=== PATIENT | female | born 1975 | race Caucasian/White ===

== ENCOUNTER → 2023-11-17 14:53 | Outpatient (REF) | payer OTHER, SELFPAY | LOC: WDC 14:53 | PROVIDERS: ATTENDING PHYSICIAN Family Medicine | DX: R92.8 Other abnormal and inconclusive findings on diagnostic imaging of breast (principal) | CPT/HCPCS: 76642 ==

== ENCOUNTER → 2024-05-13 13:48 | Outpatient (REF) | payer OTHER, SELFPAY | LOC: WDC 13:48 | PROVIDERS: ATTENDING PHYSICIAN Nurse Practitioner Women's Health; FAMILY PHYSICIAN Family Medicine | DX: Z12.31 Encounter for screening mammogram for malignant neoplasm of breast (principal); R92.8 Other abnormal and inconclusive findings on diagnostic imaging of breast | CPT/HCPCS: 76642; 77063; 77067 ==

== ENCOUNTER → 2024-12-27 10:15 | Outpatient (REF) | payer OTHER, SELFPAY | LOC: HWRAD 10:15 | PROVIDERS: ATTENDING PHYSICIAN Obstetrics & Gynecology; FAMILY PHYSICIAN Family Medicine | DX: T83.32XA Displacement of intrauterine contraceptive device, initial encounter (principal) | CPT/HCPCS: 76830; 76856 ==

== ENCOUNTER → 2025-01-07 17:12 | Outpatient (REF) | payer OTHER, SELFPAY | LOC: MRI 17:12 | PROVIDERS: ATTENDING PHYSICIAN Obstetrics & Gynecology; FAMILY PHYSICIAN Family Medicine | DX: N85.8 Other specified noninflammatory disorders of uterus (principal) | CPT/HCPCS: 72197; A9575 ==

== ENCOUNTER → 2025-01-26 17:17 | Outpatient (REF) | payer OTHER, SELFPAY | LOC: RAD 17:17 | PROVIDERS: ATTENDING PHYSICIAN Obstetrics & Gynecology Gynecologic Oncology; FAMILY PHYSICIAN Family Medicine | DX: N93.9 Abnormal uterine and vaginal bleeding, unspecified (principal); R19.09 Other intra-abdominal and pelvic swelling, mass and lump; D25.9 Leiomyoma of uterus, unspecified; C55 Malignant neoplasm of uterus, part unspecified | CPT/HCPCS: 71260; 74177; Q9967 ==

== ENCOUNTER 2025-02-01 06:08 | Day surgery (SDC) | payer OTHER, SELFPAY ==
[2025-01-19 13:47] VITALS: BMI 33.9
--- NOTE | 2025-01-31 15:01 | W.CON.GYNONC ---
Chief Complaint
-
Uterine mass
History of Present Illness
This is a 49�year�old white female referred to me by for evaluation. Patient has had an IUD since 2016, in 2019
she had irregular bleeding biopsy was negative, she recalls this was a very painful experience. Her menstrual cycles used to be 3 to
4 days and now lasting about 8 days counting the days of spotting before and after. Over the last 6 to 12 months she feels some
swelling in the pelvic area. She also admits to having an IUD in place and will check her strings, she has been having a hard time
identifying the string actually.
She transferred her care to Dr. Pinedo and was seen last week, Dr. Pinedo, think that she might have seen the strings
within the endocervical canal. For further evaluation of her bleeding she did not want to have a biopsy in the office, instead she had
an ultrasound and [facility] MRI.
Ultrasound of pelvis dated December 27, 2024 shows mass associated with the fundus of the uterus that measures 9.9 cm, there is no
shadowing, this is not typical for complex cyst or endometrioma, likely a large transmural vascular fibroid. Endometrium measures
4.4 mm, right ovary is 2.3 cm, right ovary complex cyst measuring 1.47, left ovary 2.5 cm.
MRI of the pelvis was done January 07, 2025, mass which is round circumscribed, it does not extend beyond the uterus, the mass
obscures visualization of the endometrium. Uterus is 14 cm, body of the uterus is nearly completely replaced by 8.9 x 10 x 10 cm.
This probably represents a fibroid of leiomyosarcoma cannot distinguish reliably from fibroid by MRI. Comments are made that the
IUD has migrated. Endocervical canal is not in proper place
PAP on 01/26/24 cytology negative, HPV negative
Past medical history anxiety
Past surgical history none
Allergies NKDA
Medications none
Social history she works as a plant general manager, she is single, she denies tobacco or drug use, she does admit to use of medical marijuana
to help her sleep. She drinks alcohol socially
Family history is noncontributory
Social�History Former�Smoker. Social�use�of�alcohol. Occupational�Status:�Current:�plant general manager. Marital�Status:�Patient�is�single
Gynecological�History Age�at�Menarche�14�years.�Patient�reports�1�pregnancies.
Family�Medical�History Mother:�diabetes father:�kidney�disease
Patient�Reported�Level�of�Pain Pain:�2���Discomforting�pain. Pain:�2���Discomforting�pain. Treatment�Recommendations�for�Pain Continue�current�pain�regimen.
Medical History
Allergies
Allergies reflect when allergies were last updated in [employer].
No Known Allergies Allergy (Verified 01/18/25 15:03)
Physical Exam
Physical Exam
Physical Exam
Pelvic Examination:
External normal labia, urethra, anus.
Vagina: Normal mucosa.
Cervix: normal appearance, no discharge.no lesions, pap done
Uterus: 16 weeks size, mobile
Adnexa: No pelvic mass.
Abby Ricketts, 1975 Page 2 of 4
RVE: no masses or nodularity
General: Well developed, well nourished patient. In no acute distress.
Neck: No thyromegaly. No cervical lymphadenopathy.
Lungs: Clear to auscultation. Good air movement bilaterally.
Cardiac: Regular rate. Regular rhythm. No murmurs appreciated.
Right Breast: No masses or dimpling. No nipple discharge.
Left Breast: No masses or dimpling. No nipple discharge.
Abdomen: Abdomen is soft. Non�tender to palpation. Non�distended.
Extremities: No edema.
Hematologic/Lymphatic: No palpable lymphadenopathy.
Musculoskeletal: Normal range of motion. Strength and Tone are normal.
Skin:Non�jaundiced. No petechia. No purpura.
Neurologic: Speech is fluent. Normal gait and station. Cranial nerves intact
Results
-
Diagnostic Imaging Report
SignedOrder #:[id number]
Exams: CT Chest/abd/pel W Iv Cont
PROCEDURE: CT chest, abdomen, and pelvis with IV contrast
CLINICAL INDICATION: Abnormal vaginal bleeding, malignant neoplasm of the uterus
TECHNIQUE: Contrast-enhanced CT of the chest, abdomen, and pelvis was performed following uneventful administration of 85 mL of intravenous contrast. Automated dose reduction technique was used.
COMPARISON: Pelvis MRI 01/07/2025
FINDINGS:
There is no pulmonary mass or consolidation. There is no pleural effusion.
There is no enlarged hilar or mediastinal adenopathy. There is no pericardial effusion. The heart is not enlarged. There is no thyroid mass.
The liver and spleen are unremarkable. There is no pancreatic mass. There are no gallstones. There is no adrenal mass. There is bilateral renal excretion with no evidence of a renal mass.
There is contrast in small and large bowel. Small bowel loops are not distended.
The uterus is markedly enlarged measuring approximately 12.5 x 11.6 x 15.2 cm. There is an IUD in the endometrial canal. In the fundus of the uterus there is an inhomogeneous mass seen on recent MRI. This measures approximately 10.8 x 9.0 x 8.6 cm.
In the left adnexa there is a simple cyst measuring 3 cm. This is not seen on the pelvic MRI. The right ovary has a complex cystic appearance measuring 3 cm. Recent MRI suggests an endometrioma. There is no free fluid in the abdomen or pelvis. There
is no bladder mass or calculus.
The visualized osseous structures are unremarkable
IMPRESSION:
There is no CT evidence of metastatic disease
The uterus is markedly enlarged and inhomogeneous with a fundal mass seen on MRI
There is a simple cyst in the left adnexa not seen on MRI
There is a complex cystic appearance to the right ovary, likely endometrioma as noted on MRI
Electronically signed by Memo Grullon MD, 01/27/2025 2:33 PM
[facility] Dose Report: Up-to-date CT equipment and radiation dose reduction techniques were employed. CTDIvol: 8.9 - 13.5 mGy. DLP: 872 mGy-cm.
Dictated By: Mitchel COTO,Memo Oliveira
Dictated Date & Time: 01/27/25 8826
Impression / Plan
-
I spoke with the patient extensively and reviewed the images from her recent formal and shared with her my findings from the
examination. The uterus is approximately 16 weeks in size, the MRI is significant for this large 10 cm uterine mass which is
hypervascular, abnormal uterine bleeding requires further investigation including dilation and curettage at which time IUD will be
removed. She is agreeable to this. She is not agreeable to try biopsy because of the pain associated with that. The previous
procedure in the office. Surgery will be scheduled next week.
In addition labs including coagulation studies TSH FSH and hCG CA125 will be done
I did express to her my concern that I cannot exclude the possibility of a uterine leiomyosarcoma, the only way to distinguish this
lesion is by performing a hysterectomy and having pathology negative diagnosis. In order to rule this out completely the patient
wanted to go total laparoscopic hysterectomy bilateral salpingo�oophorectomy which can be done robotically but because of her
normal thyroid status the patient probably requires a mini laparotomy for extraction of specimen. As part of her preoperative
evaluation a CT of chest abdomen and pelvis will be obtained.
I asked her to obtain a medical clearance from her primary care physician.
[2025-02-01] VITALS (9 sets, daily range): BP systolic 100–151; BP diastolic 57–97; BMI 33.9
[2025-02-01] MEDS: CELEBREX 200 MG PO (07:06)
[2025-02-01] MEDS: NEURONTIN 300 MG PO (07:06)
[2025-02-01] MEDS: HEPARIN 5000 UNITS SC (07:07)
[2025-02-01] MEDS: NORMOSOL-R/PLASMALYTE-A 1000 IV (07:07)
[2025-02-01] MEDS: TYLENOL 1000 MG PO (07:07)
--- NOTE | 2025-02-01 08:27 | OR.RPT ---
Operative Report
Operative Report
Date of procedure: February 01, 2025
Preoperative diagnosis: Uterine mass, abnormal uterine bleeding, desire to remove IUD
Postoperative diagnosis: Same pending pathology
Surgeon: Ja Bowen MD
Assist: James Riojas PA-C
Procedure: Exam under anesthesia, dilation and curettage with diagnostic hysteroscopy, removal of IUD
Anesthesia: General LMA intubation
Estimated blood loss: 50 cc
Complication: None
Indication for the surgery: This patient has recently been evaluated for abnormal uterine bleeding and was noted to have a large uterine mass that is vascular. Endometrial sampling could not be tolerated in the office and plan is for a definitive
hysterectomy. Decision was made to bring her to the operating room for dilation and curettage and sampling of the endometrium prior to hysterectomy.
Procedure in detail: This patient was brought to the operating room and placed in supine position. General anesthesia was induced and LMA intubation was completed. She was placed in lithotomy position using yellowfin stirrups and prepped on the
perineum upper thighs and vagina. The patient was draped. Timeout procedure was carried out. She received 2 g of Ancef for prophylaxis. The weighted speculum was placed in the posterior fornix anterior lip of the cervix was grasped with
single-tooth tenaculum, paracervical block was performed with 10 cc 1% lidocaine injected equally at 5 and 7:00 paracervical location. Cervix is grossly within normal limits. The uterus is approximately 16 cm in size, bilateral parametria are
within normal limits and the uterus is mobile but fundus extends just below umbilicus. Following this cervical canal was gradually dilated with Lowe dilators up to 8. I used a polyp forcep that was introduced in the uterine cavity and extracted
the IUD without any difficulty this was not sent to pathology. Hysteroscope was introduced in the cervical canal. Please note that the cervical canal measured about 15 cm. The endometrial cavity was filled with tissue, specific polyp was not
seen. Hysteroscope was removed, dilation was continued up to size 10 Lowe dilator. At this point sharp curettage of the endometrial cavity was performed and moderate amount of tissue some polypoid in nature was extracted after 3 times and sharp
cry was able to be palpated on all ortega of the endometrial cavity. This tissue was submitted to pathology we observed the patient and there was minimal to no evidence of bleeding. All instruments were removed. Patient was sent to recovery room
in awake stable and extubated condition. Counts of laps instruments and needle was correct x 2. I was present and scrubbed for entire procedure as dictated above
Specimen: EMC
Disposition: To PACU stable awake and extubated
[2025-02-01] MEDS: DILAUDID 0.25 MG IV (08:45)
== END 2025-02-01 10:15 | disposition home or self-care (01) ==
LOC: SDS 06:08
PROVIDERS: ATTENDING PHYSICIAN Obstetrics & Gynecology Gynecologic Oncology; FAMILY PHYSICIAN Family Medicine
DX: N83.8 Other noninflammatory disorders of ovary, fallopian tube and broad ligament (principal); N93.8 Other specified abnormal uterine and vaginal bleeding; R19.09 Other intra-abdominal and pelvic swelling, mass and lump; Z96.0 Presence of urogenital implants
CPT/HCPCS: 58558; 58301; 88305; 36415; 86850; 86900; 86901; 88341; 88342; 88360

== ENCOUNTER 2025-02-15 06:16 | Day surgery (SDC) | payer OTHER, SELFPAY ==
[2025-02-04 14:02] VITALS: BMI 32.7
--- NOTE | 2025-02-13 08:43 | W.CON.GYNONC ---
Chief Complaint
-
VAscular mass of uterus
History of Present Illness
This�is�a�49�year�old��white�female�referred�to�me�by�Dr.Fonslick�for�evaluation.�Patient�has�had�an�IUD�since�2015,�in�2018
she�had�irregular�bleeding�biopsy�was�negative,�she�recalls�this�was�a�very�painful�experience.�Her�menstrual�cycles�used�to�be�3�to
4�days�and�now�lasting�about�8�days�counting�the�days�of�spotting�before�and�after.�Over�the�last�6�to�12�months�she�feels�some
swelling�in�the�pelvic�area.�She�also�admits�to�having�an�IUD�in�place�and�will�check�her�strings,�she�has�been�having�a�hard�time identifying�the�string�actually.
She�transferred�her�care�to�[facility],�,�think�that�she�might�have�seen�the�strings
within�the�endocervical�canal.�For�further�evaluation�of�her�bleeding�she�did�not�want�to�have�a�biopsy�in�the�office,�instead�she�had an�ultrasound�and�[facility]�MRI.
Ultrasound�of�pelvis�dated�March�1�shows�mass�associated�with�the�fundus�of�the�uterus�that�measures�9.9�cm,�there�is�no
shadowing,�this�is�not�typical�for�complex�cyst�or�endometrioma,�likely�a�large�transmural�vascular�fibroid.�Endometrium�measures 4.4�mm,�right�ovary�is�2.3�cm,�right�ovary�complex�cyst�measuring�1.47,�left�ovary�2.5�cm.
MRI�of�the�pelvis�was�done�March�2,�mass�which�is�round�circumscribed,�it�does�not�extend�beyond�the�uterus,�the�mass
obscures�visualization�of�the�endometrium.�Uterus�is�14�cm,�body�of�the�uterus�is�nearly�completely�replaced�by�8.9�x�10�x�10�cm.
This�probably�represents�a�fibroid�of�leiomyosarcoma�cannot�distinguish�reliably�from�fibroid�by�MRI.�Comments�are�made�that�the IUD�has�migrated.�Endocervical�canal�is�not�in�proper�place PAP�on�01/26/24�cytology�negative,�HPV�negative
D&C was done on 02/01/2025, pathology shows:
FINAL DIAGNOSIS
A. Endometrium, curettage:
Cellular smooth muscle lesion with abundant vessels. See comment.
Scant benign endocervical epithelium with tubal metaplasia, a rare fragment of benign
squamous epithelium and scant benign endometrium in a background of abundant blood.
Comment: The smooth muscle lesion is positive for ER, KY, WT-1, SMA, desmin, and
caldesmon, and shows partial positivity for CD10, BCL-2 and gonsalez-keratin. The lesion is negative
for CD34 (highlights the vessels), STAT6 and HMB-45. Ki-67 shows an intermediate
proliferation index. No areas of necrosis or mitoses are identified. The findings are compatible
with a smooth muscle derived lesion with abundant vessels, however given the small sampling of
a �mass measuring 9.9 cm� noted on pelvic ultrasound, the differential includes a vascular
leiomyoma, STUMP or leiomyosarcoma, and less likely an endometrial stromal sarcoma.
Clinical and radiologic correlation recommended.
The findings of this case were conveyed to and received by Dr. Bowen via a secure messaging
system on 02/11/25 at 4:24 PM.
Dictated by: Michelle Garber MD
Past�medical�history�anxiety
Past�surgical�history�D&C, Removal of IUD
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
Family�history�is�noncontributory
Medical History
Allergies
Allergies reflect when allergies were last updated in [employer].
No Known Allergies Allergy (Verified 02/08/25 09:06)
Physical Exam
Physical Exam
Pelvic�Examination: External�normal�labia,�urethra,�anus.� Vagina:�Normal�mucosa.� Cervix:�normal�appearance,�no�discharge.no�lesions,�pap�done Uterus:�16�weeks�size,�mobile� Adnexa:�No�pelvic�mass.� RVE:�no�masses�or�nodularity
General:�Well�developed,�well�nourished�patient.�In�no�acute�distress. Neck:�No�thyromegaly.�No�cervical�lymphadenopathy. Lungs:�Clear�to�auscultation.�Good�air�movement�bilaterally. Cardiac:�Regular�rate.�Regular�rhythm.�No�murmurs�appreciated.
Right�Breast:�No�masses�or�dimpling.�No�nipple�discharge. Left�Breast:�No�masses�or�dimpling.�No�nipple�discharge. Abdomen:�Abdomen�is�soft.�Non�tender�to�palpation.�Non�distended. Extremities:�No�edema.
Hematologic/Lymphatic:�No�palpable�lymphadenopathy. Musculoskeletal:�Normal�range�of�motion.�Strength�and�Tone�are�normal. Skin:Non�jaundiced.�No�petechia.�No�purpura. Neurologic:�Speech�is�fluent.�Normal�gait�and�station.�Cranial�nerves�intact.
Results
-
[facility]
[address] [place] [address]
[phone]
Patient Name: ROSE HAILE
: 1975
Unit Number: [id number]
Age/Sex: 49/F
Patient
Location: RAD
Order Provider: Ja Bowen MD
Exam Service Date: 01/26/25

Diagnostic Imaging Report
SignedOrder #:[id number]
Exams: CT Chest/abd/pel W Iv Cont
PROCEDURE: CT chest, abdomen, and pelvis with IV contrast
CLINICAL INDICATION: Abnormal vaginal bleeding, malignant neoplasm of the uterus
TECHNIQUE: Contrast-enhanced CT of the chest, abdomen, and pelvis was performed following uneventful administration of 85 mL of intravenous contrast. Automated dose reduction technique was used.
COMPARISON: Pelvis MRI 01/07/2025
FINDINGS:
There is no pulmonary mass or consolidation. There is no pleural effusion.
There is no enlarged hilar or mediastinal adenopathy. There is no pericardial effusion. The heart is not enlarged. There is no thyroid mass.
The liver and spleen are unremarkable. There is no pancreatic mass. There are no gallstones. There is no adrenal mass. There is bilateral renal excretion with no evidence of a renal mass.
There is contrast in small and large bowel. Small bowel loops are not distended.
The uterus is markedly enlarged measuring approximately 12.5 x 11.6 x 15.2 cm. There is an IUD in the endometrial canal. In the fundus of the uterus there is an inhomogeneous mass seen on recent MRI. This measures approximately 10.8 x 9.0 x 8.6 cm.
In the left adnexa there is a simple cyst measuring 3 cm. This is not seen on the pelvic MRI. The right ovary has a complex cystic appearance measuring 3 cm. Recent MRI suggests an endometrioma. There is no free fluid in the abdomen or pelvis. There
is no bladder mass or calculus.
The visualized osseous structures are unremarkable
IMPRESSION:
There is no CT evidence of metastatic disease
The uterus is markedly enlarged and inhomogeneous with a fundal mass seen on MRI
There is a simple cyst in the left adnexa not seen on MRI
There is a complex cystic appearance to the right ovary, likely endometrioma as noted on MRI
Electronically signed by Memo Grullon MD, 01/27/2025 2:33 PM
[facility] Dose Report: Up-to-date CT equipment and radiation dose reduction techniques were employed. CTDIvol: 8.9 - 13.5 mGy. DLP: 872 mGy-cm.
Dictated By: Mitchel COTO,Memo Oliveira
Dictated Date & Time: 01/27/251414
Impression / Plan
-
I�spoke�with�the�patient�extensively�and�reviewed�the�images�from�her�recent�formal�and�shared�with�her�my�findings�from�the examination.�The�uterus�is�approximately�16�weeks�in�size,�the�MRI�is�significant�for�this�large�10�cm�uterine�mass�which�is
hypervascular,�
abnormal�uterine�bleeding�was investigated with D&C� �at�which�time�IUD�was removed.� path showed Cellular smooth muscle lesion with abundant vessels. Scant benign endocervical epithelium with tubal metaplasia, a rare fragment of benign squamous
epithelium and scant benign endometrium in a background of abundant blood.
In�addition�labs�including�coagulation�studies�TSH�FSH�and�hCG�CA125�will�be�done
I�did�express�to�her�my�concern�that�I�cannot�exclude�the�possibility�of�a�uterine�leiomyosarcoma,�the�only�way�to�distinguish�this
lesion�is�by�performing�a�hysterectomy�and�having�pathology�negative�diagnosis.�In�order�to�rule�this�out�completely�the�patient
wanted�to�go�total�laparoscopic�hysterectomy�bilateral�salpingo�oophorectomy�which�can�be�done�robotically�but�because�of�her large fibroid the�patient�probably�requires�a�mini�laparotomy�for�extraction�of�specimen.�She is inclined to keep her
ovaries,
I�asked�her�to�obtain�a�medical�clearance�from�her�primary�care�physician.
[2025-02-15] VITALS (10 sets, daily range): BP systolic 100–123; BP diastolic 55–82; BMI 32.7
[2025-02-15] MEDS: CELEBREX 200 MG PO (12:58)
[2025-02-15] MEDS: TYLENOL 1000 MG PO (12:58)
[2025-02-15] MEDS: NEURONTIN 300 MG PO (12:58)
[2025-02-15] MEDS: HEPARIN 5000 UNITS SC (13:01)
[2025-02-15] MEDS: NORMOSOL-R/PLASMALYTE-A 1000 IV (13:12)
[2025-02-15] MEDS: DEMEROL 12.5 MG IV ×2 (16:30→16:54)
[2025-02-15] MEDS: DILAUDID 0.25 MG IV (16:35)
--- NOTE | 2025-02-15 16:40 | OR.RPT ---
Operative Report
Operative Report
Operative Report
Date of procedure: February 15, 2025
Primary Surgeon: Ja Bowen
Assisting Surgeon: James Riojas PA-C, Jaime PLUMMER
The assistance of and Yvonne was required due to the complexity of the procedure. During the procedure they both assisted with retraction, resection, and closure of the wound.
Pre-op Diagnosis: Cellular leiomyoma of uterus, abnormal uterine bleeding
Post-op Diagnosis: Pending final pathology
Procedure Performed:
Robotic total laparoscopic hysterectomy, uterus greater than 250 g, bilateral salpingectomy with preservation of both ovaries [id number]
Mini laparotomy for extraction of specimen
TAP block
Anesthesia Type: General ET
Specimen / Cultures: Uterue, cervix, R & L tubes
Estimated Blood Loss: 50
Complications: none
Indication for the surgery. Patient has had abnormal uterine bleeding evaluation reveals enlarged uterus with vascular mass. MRI confirms similar findings. She underwent a recent dilation and curettage which reveals endometrium to be benign
however there is ample fragments of smooth muscle neoplasm that have significant vascularity currently classified as cellular leiomyoma pending final pathology
Operative Findings: Uterus is enlarged at approximately 18 weeks size, bilateral tubes and ovaries are unremarkable. There is no evidence of peritoneal disease involving pelvis paracolic gutters or diaphragm. Liver spleen stomach and omentum
appear normal.
PROCEDURE IN DETAIL: This patient was taken to the operating room and placed in a supine position. General anesthesia was administered. She was intubated without any difficulty. She was placed in lithotomy position using Yellowfin stirrups. Arms
were wrapped in place along the patient's side and all joints were attended to ensure lack of any pressure on any upper or lower extremity. The patient was prepped on the abdomen, perineum, and vagina. Deluna catheter was inserted under sterile
conditions in the bladder. The patent was draped. Timeout procedure was completed. She received appropriate antibiotics preoperatively. After dilation of the cervical canal which sounded to 15 cm, uterine manipulator websphere portal architect type was placed in
the uterus with a 3.0 cm PEARL ring. Vaginal cuff occluder was insufflated.
Veress needle was inserted just below left subcostal margin and pneumoperitoneum was created up to pressure of 15 mmHg. 8 mm robotic port was inserted 25 cm cephalad to symphysis pubis into the peritoneal cavity. A survey of the upper abdomen
reveals liver, stomach, diaphragms, right and left pericolic gutters to be within normal limits. Under direct visualization, TAP block was injected with Ropivacaine and Decadron mixture equally distributed 2 fingerbreadths along the lateral aspect
of right and left subcostal margins just above the peritoneum, but below the muscle. Once this was completed, right and left upper quadrant XI robotic ports were placed and right and left XI robotic ports were placed in the lateral abdomen. The
patient was placed in 28 degree Trendelenburg.
The robotic system was docked. Right and left round ligaments were sealed and divided. Anterior and posterior leads and the broad ligament was dissected open. The course of the ureters were identified bilaterally and a window was created between IP
ligaments and ureters. Mesosalpinx was sealed and divided and then the entire fallopian tube with fimbria were detached from the ovary and uterus and each fallopian tube was submitted to pathology separately. Utero-ovarian ligament as well as
attachments of the ovarian vessels to the uterus were sealed and divided bilaterally. Next, bladder flap was sharply developed and advanced below the cervicovaginal junction. Both uterine arteries were skeletonized. They were sealed 3 times and
divided. paracervical and uterosacral ligament were sealed and divided. Circumferential incision was made around the PEARL ring until the specimen was completely detached. Uterus, cervix, were detached from the vagina. A large endoscopic bag was
introduced through the vagina and the abdomen and the uterine specimen was placed within it and cinched closed. Following this we proceeded to close the vaginal cuff.. The vaginal apex was closed with 0-Vicryl suture and ligature in a Figure-of-8
fashion at both apices. Following this, V-Loc suture was used to close the vaginal cuff starting from right to the left side and back to the right side in 2 layers. We irrigated the pelvis and there was no evidence of bleeding. We inspected the
vagina and there was no evidence of lacerations. All ports were removed and pneumoperitoneum was released.
An 8 cm low transverse incision was made 2 cm above symphysis pubis and carried through subcutaneous tissue, fascia was opened rectus muscle was along the midline peritoneum was entered. The specimen of uterus and cervix contained within
an endoscopic bag was retrieved and submitted for final pathology. The edges of the incision was hemostatic. The fascia was closed with STRATAFIX suture starting from both ends coming to the center and then reversed back to each corners.
Subcutaneous tissue was made hemostatic and closed with a running suture of 2-0 Monocryl. 4-0 Monocryl was used in a subcuticular fashion to close the skin incision. Dermabond perineal was applied to this incision. We did inject this incision
with 20 cc 0.25% bupivacaine. The fascia for all the ports were not closed because they were 8 mm each in size. Skin incisions were closed with 4-0 Monocryl in a subcuticular fashion.
The patient was awakened, extubated, and returned back to recovery room in stable, awake, and extubated condition. Counts of laps, instruments, and needle was correct x2. I was present and scrubbed for the entire procedure as dictated above.
DISPOSITION: To PACU, stable, awake, and extubated.
== END 2025-02-15 19:21 | disposition home or self-care (01) ==
LOC: SDS 06:16
PROVIDERS: ATTENDING PHYSICIAN Obstetrics & Gynecology Gynecologic Oncology; FAMILY PHYSICIAN Family Medicine
DX: D39.0 Neoplasm of uncertain behavior of uterus (principal); D25.9 Leiomyoma of uterus, unspecified
CPT/HCPCS: 58571; 88305; 88309; 36415; 86850; 86900; 86901; 88341; 88342

== ENCOUNTER 2025-03-30 10:27 | Outpatient (RCR) | payer OTHER, SELFPAY | END 2025-03-30 23:59 | disposition home or self-care (01) | LOC: RPT 10:27 | PROVIDERS: ATTENDING PHYSICIAN Obstetrics & Gynecology Gynecologic Oncology; FAMILY PHYSICIAN Family Medicine | DX: C54.1 Malignant neoplasm of endometrium (principal); M62.89 Other specified disorders of muscle; Z73.6 Limitation of activities due to disability | CPT/HCPCS: 97163; 97530 ==

== ENCOUNTER 2025-04-27 13:22 | Outpatient (RCR) | payer OTHER, SELFPAY | END 2025-04-27 23:59 | disposition home or self-care (01) | LOC: RPT 13:22 | PROVIDERS: ATTENDING PHYSICIAN Obstetrics & Gynecology Gynecologic Oncology; FAMILY PHYSICIAN Family Medicine | DX: C54.1 Malignant neoplasm of endometrium (principal); M62.89 Other specified disorders of muscle; Z73.6 Limitation of activities due to disability | CPT/HCPCS: 97112; 97140; 97530 ==

== ENCOUNTER → 2025-05-24 14:17 | Outpatient (REF) | payer OTHER, SELFPAY | LOC: WDC 14:17 | PROVIDERS: ATTENDING PHYSICIAN Obstetrics & Gynecology; FAMILY PHYSICIAN Family Medicine | DX: Z12.31 Encounter for screening mammogram for malignant neoplasm of breast (principal); R92.8 Other abnormal and inconclusive findings on diagnostic imaging of breast | CPT/HCPCS: 76642; 77063; 77067 ==

== ENCOUNTER 2025-06-17 11:47 | Outpatient (RCR) | payer OTHER, SELFPAY | END 2025-06-17 23:59 | disposition home or self-care (01) | LOC: RPT 11:47 | PROVIDERS: ATTENDING PHYSICIAN Obstetrics & Gynecology Gynecologic Oncology; FAMILY PHYSICIAN Family Medicine | DX: C54.1 Malignant neoplasm of endometrium (principal); M62.89 Other specified disorders of muscle; Z73.6 Limitation of activities due to disability; R39.15 Urgency of urination | CPT/HCPCS: 97110; 97112; 97140; 97530 ==